=== PATIENT | male | born 1975 | race Caucasian/White ===

== ENCOUNTER → 2019-07-17 09:37 | Outpatient (BNVA) | payer SELFPAY | PROVIDERS: Family Provider Internal Medicine; PCP Internal Medicine; Visit Provider Specialist | DX: S62.141A Displaced fracture of body of hamate [unciform] bone, right wrist, initial encounter for closed fracture (principal); X58.XXXA Exposure to other specified factors, initial encounter | CPT/HCPCS: 73130 ==

== ENCOUNTER 2019-12-13 16:45 | Outpatient (CLI) | payer SELFPAY ==
--- NOTE | 2019-12-13 | XR_ITS ---
WS: [id number] Right hip, AP and frog-leg views, 12/13/2019 Clinical Data: PAIN Comparison: None. Findings: No fractures or dislocations are seen. The hip joint is intact. The soft tissues are not remarkable. The adjacent pelvis is normal. XR/XR hip RT 2-3V wo/w pel* [id number] Impression: Negative right hip.
== END 2019-12-13 16:46 | disposition home or self-care (01) ==
LOC: RAD 16:49
PROVIDERS: PCP Internal Medicine; Visit Provider Nurse Practitioner Family
DX: M25.551 Pain in right hip (principal)
CPT/HCPCS: 73502

== ENCOUNTER 2024-09-06 11:05 | Emergency (ER) | payer SELFPAY ==
[2024-09-06 11:13] VITALS: BP 147/79; PULSE 53; RESP 18; TEMP 36.7; O2SAT 98; BMI 31.5
--- NOTE | 2024-09-06 11:17 | XR_ITS ---
WS: [id number] XR chest 1V portable [id number] REASON FOR EXAM: Shortness of breath FINDINGS: The heart is at the upper limits of normal in size. 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 However this be rather prominent for the patient's age. Other mediastinal mass may need to be considered. Calcified granulomatous disease bilaterally. No acute pulmonary parenchymal or pleural abnormality. XR/XR chest 1V portable [id number] IMPRESSION: No acute chest abnormality. Widening of the upper mediastinum as above.
--- NOTE | 2024-09-06 11:19 | ECG_ITS ---
[facility] Test Date: 2024-09-06 Pat Name: Fuentes Pulido Department: Room: Gender: Male Coloring Room Man: : 1975 Requested By: Maeve Pacheco Order Number: [id number] [place] MD: Elvin Bueno M.D. Measurements Intervals [place] Rate: 57 P: 46 MN: 153 QRS: 46 QRSD: 91 T: 58 QT: 390 QTc: 380 Interpretive Statements SINUS BRADYCARDIA No previous ECG available for comparison Electronically Signed On 09-09-2024 18:08:40 ANTIQUE CLOCK REPAIRER by Elvin Bueno M.D. [email or web address]
[2024-09-06 11:33] VITALS: PULSE 54; O2SAT 100
[2024-09-06 11:52] LABS: Basophils # 0.1 10^3/uL (0.0-0.1); Basophils % 0.7 %; Eosinophils # 0.2 10^3/uL (0.0-0.8); Eosinophils % 2.2 %; Hematocrit 41.3 % (37-53); Lymphocytes # 2.1 10^3/uL (0.8-4.8); Lymphocytes % 28.7 %; Mean Corpuscular HGB Conc 32.9 g/dL (30-55); Mean Corpuscular Hemoglobin 28.5 pg (27-33); Mean Corpuscular Volume 86.6 fl (82-101); Mean Platelet Volume 10.7 fL (7.4-10.4); Monocytes # 0.8 10^3/uL (0.2-0.9); Monocytes % 10.5 %; Neutrophils # 4.11 10^3/uL (1.8-7.7); Neutrophils % 57.6 %; Nucleated Red Blood Cells % 0 %; Platelet Count 257 10^3/cmm (157-399); Red Blood Count 4.77 10^6/uL (3.85-5.65); Red Cell Distribution Width 13.9 % (12.1-15.1); White Blood Count 7.14 10^3/uL (3.29-11.43)
--- NOTE | 2024-09-06 12:07 | CT_ITS ---
WS: [id number] CT CHEST, ABDOMEN AND PELVIS WITH CONTRAST HISTORY: Left chest pain and flank pain. Abnormal chest x-ray TECHNIQUE: Contiguous 5 mm axial imaging performed through the chest, abdomen and pelvis with IV contrast, oral contrast has not been provided. Coronal and sagittal reformats chest. Coronal and sagittal reformats through the abdomen and pelvis. All CT scans at [facility] use at least one of these dose optimization techniques: automated exposure control; mA and/or kV adjustment per patient size (includes targeted exams where dose is matched to clinical indication); or iterative reconstruction. CONTRAST: Omnipaque 350; 100 mL IV. DLP: 1627.42 mGy.cm COMPARISON: Radiograph 09/06/[address]: Lungs are clear. No pulmonary mass, nodule or pneumonia. No RIGHT paratracheal abnormality. No pneumothorax. No pericardial or pleural effusions. Heart size is normal. No mediastinal or hilar adenopathy. Small hiatal hernia. Abdomen CT: Normal liver and spleen. Normal gallbladder. Normal common bile duct. Normal pancreas and adrenal glands. No renal obstruction or calcification. No perinephric stranding. Normal size abdominal aorta. Mesenteric enhancement is normal. There is very slight narrowing of the proximal celiac axis normal portal vein. No GI tract obstruction. No small bowel obstruction or inflammation. Normal appendix. Increased fecal material and air in the RIGHT colon. The cecum is medially placed but there does not appear to be a volvulus. This may be normal position of the cecum for this patient or a mobile cecum. There is no venous congestion to suggest this is an acute process. Pelvic CT: No free fluid or adenopathy. Normal appearance of the urinary bladder. Bladder wall is slightly thickened the cysts is probably due to partial distention. L3 superior endplate Schmorl's node. CT/CT chest abdpel w/*[id number] IMPRESSION: 1. No acute abnormality within the chest, abdomen or pelvis. 2. No pneumonia or mediastinal adenopathy. 3. No renal obstruction. 4. Constipation. Increased fecal material within the RIGHT colon. Cecum is med ially displaced but there does not appear to be an obstruction at this time. Th is may be secondary to a mobile cecum. No appendicitis.
--- NOTE | 2024-09-06 12:09 | W.ED.ABDPA2 ---
HPI - Abdominal Pain General: Chief Complaint: Abdominal Pain Stated Complaint: L side pain Time Seen by Provider: 09/06/24 11:12 History of Present Illness: 48-year-old man with a history of hypertension and diabetes who presents to the emergency room with left chest and flank pain. He has been coughing for couple of weeks now. He says this morning when he went to the restroom he felt a sudden pop in his left side and now has pain in his left flank and left chest. It hurts worse with deep breathing. It is caused some nausea but no vomiting. He feels somewhat short of breath. No fevers. No dysuria. Related Data Home Medications ?Medication ?Instructions ?Recorded ?Confirmed esomeprazole magnesium 20 mg 40 mg PO ONCE 07/17/19 09/06/24 capsule,delayed release (Nexium) insulin lispro 100 unit/mL See Rx Instructions .Route .COMPLEX 07/17/19 09/06/24 subcutaneous pen (Humalog KwikPen (U-100) Insulin) ibuprofen 200 mg tablet 200 mg PO Q6H PRN Pain 09/06/24 09/06/24 insulin degludec 100 unit/mL (3 38 unit SUBCUT DAILY 09/06/24 09/06/24 mL) subcutaneous pen (Tresiba FlexTouch U-100 insulin) lisinopril 10 mg tablet 10 mg PO DAILY 09/06/24 09/06/24 lovastatin 20 mg tablet 20 mg PO DAILY 09/06/24 09/06/24 multivit,Ca,royy-VP-avciyqby-lutn 1 tab PO DAILY 09/06/24 09/06/24 18 mg-500 mcg-300 mcg-250 mcg tablet Previous Rx's ?Medication ?Instructions ?Recorded benzonatate 200 mg capsule 200 mg PO TID PRN cough #30 caps 09/06/24 dexamethasone 6 mg tablet 6 mg PO DAILY 5 days #5 tabs 09/06/24 diclofenac sodium 50 mg 50 mg PO BID PRN pain #14 tabs 09/06/24 tablet,delayed release doxycycline hyclate 100 mg capsule 100 mg PO BID 7 days #14 caps 09/06/24 Allergies Allergy/AdvReac Type Severity Reaction Status Date / Time Penicillins Allergy uknown Verified 11/13/19 14:38 Review of Systems Narrative: Constitutional symptoms: Negative except as documented in HPI. Skin symptoms: Negative except as documented in HPI. Eye symptoms: Negative except as documented in HPI. ENMT symptoms: Negative except as documented in HPI. Respiratory symptoms: Negative except as documented in HPI. Cardiovascular symptoms: Negative except as documented in HPI. Gastrointestinal symptoms: Negative except as documented in HPI. Genitourinary symptoms: Negative except as documented in HPI. Musculoskeletal symptoms: Negative except as documented in HPI. Neurologic symptoms: Negative except as documented in HPI. Psychiatric symptoms: Negative except as documented in HPI. Endocrine symptoms: Negative except as documented in HPI. PFSH ED PFSH: Medical History (Updated 09/06/24 @ 13:09 by Maeve Murray MD) Panic disorder [episodic paroxysmal anxiety] Major depressive disorder, recurrent severe without psychotic features Cannabis dependence, in remission Social History Smoking and tobacco/nicotine status: never used tobacco/nicotine Alcohol intake: current Alcohol intake frequency: holidays/special occasions only Substance/Drug Use: current Substance/Drug use frequency: few times a month Physical Exam Narrative: EXAM NARRATIVE: General: Alert, no acute distress. Skin: Warm, dry. Head: Normocephalic, atraumatic. Neck: Supple, trachea midline. Eye: Extraocular movements are intact. Ears, nose, mouth and throat: mucosa moist. Cardiovascular: Regular, Normal peripheral perfusion. Respiratory: Lungs are clear to auscultation, respirations are non-labored, breath sounds are equal, Symmetrical chest wall expansion. Gastrointestinal: Soft, Nontender, Non distended Musculoskeletal: Normal ROM, no deformity. Neurological: Alert and oriented, No focal neurological deficit observed. Psychiatric: Cooperative, appropriate mood & affect. Course Vital Signs: Vital signs: Vital Signs Temperature 98.1 F 09/06/24 11:13 Pulse Rate 54 L 09/06/24 12:30 Respiratory Rate 18 09/06/24 11:13 Blood Pressure 132/70 09/06/24 12:30 Pulse Oximetry 100 09/06/24 12:30 Oxygen Delivery Me thod Room Air 09/06/24 12:30 MDM - Abdominal Pain Medical Decision Making Differential diagnosis for patient with chest pain includes but is not limited to and based on the above HPI, review of systems and physical exam: Pneumonia. unstable angina. angina. Acute coronary syndrome / [place]. Pulmonary embolism. Costochondritis / musculoskeletal. Pleurisy. Pericarditis. Esophageal spasm. Pancreatis. Cholecystitis. Orders placed to evaluate differential diagnosis based on the above differential, HPI and physical exam EKG: Time 1119. Rate 57. Sinus bradycardia, No ST-T changes, no ectopy, normal MT & QRS intervals, This was reviewed and interpreted by myself the ER physician at 11:24 AM Chest x-ray: No acute process. No infiltrate. No pneumothorax. This was reviewed and interpreted by myself the emergency room physician. I also reviewed the radiology report. Lab Review: Laboratory results were reviewed and interpreted by myself the emergency room physician. No leukocytosis. No anemia. No renal failure. Urinalysis is negative for infection or hematuria. CT of the chest abdomen pelvis without contrast: No acute abnormalities. This was reviewed and interpreted by myself the emergency room physician. I also reviewed the radiology report. I reviewed the patient's medical record. Reexamination: Patient remained stable. No increased work of breathing. No altered mental status. No focal motor deficits. Assessment and plan: Rib pain Cough Bronchitis - Discharged home - Discussed plan with patient. Answered any questions. - Evaluation and treatment of this problem were appropriate in the emergency setting. Lab Data 09/06/24 11:35 09/06/24 11:35 Labs/Radiology: Radiology Impressions Chest X-Ray 09/06/24 11:17 IMPRESSION: No acute chest abnormality. Widening of the upper mediastinum as above. Chest/Abdomen/Pelvis CT 09/06/24 12:07 IMPRESSION: 1. No acute abnormality within the chest, abdomen or pelvis. 2. No pneumonia or mediastinal adenopathy. 3. No renal obstruction. 4. Constipation. Increased fecal material within the RIGHT colon. Cecum is medially displaced but there does not appear to be an obstruction at this time. This may be secondary to a mobile cecum. No appendicitis. Laboratory Results WBC 7.14 10^3/uL (3.29-11.43) 09/06/24 11:35 RBC 4.77 10^6/uL (3.85-5.65) 09/06/24 11:35 Hgb 13.60 g/dL (11.27-16.99) 09/06/24 11:35 Hct 41.3 % (37-53) 09/06/24 11:35 MCV 86.6 fl (82-101) 09/06/24 11:35 MCH 28.5 pg (27-33) 09/06/24 11:35 MCHC 32.9 g/dL (30-55) 09/06/24 11:35 RDW 13.9 % (12.1-15.1) 09/06/24 11:35 Plt Count 257 10^3/cmm (157-399) 09/06/24 11:35 MPV 10.7 fL (7.4-10.4) H 09/06/24 11:35 Neut % (Auto) 57.6 % 09/06/24 11:35 Lymph % (Auto) 28.7 % 09/06/24 11:35 [place] % (Auto) 10.5 % 09/06/24 11:35 Eos % (Auto) 2.2 % 09/06/24 11:35 Baso % (Auto) 0.7 % 09/06/24 11:35 Neut # (Auto) 4.11 10^3/uL (1.8-7.7) 09/06/24 11:35 Lymph # (Auto) 2.1 10^3/uL (0.8-4.8) 09/06/24 11:35 [place] # (Auto) 0.8 10^3/uL (0.2-0.9) 09/06/24 11:35 Eos # (Auto) 0.2 10^3/uL (0.0-0.8) 09/06/24 11:35 Baso # (Auto) 0.1 10^3/uL (0.0-0.1) 09/06/24 11:35 Nucleated RBC % (auto) 0 % 09/06/24 11:35 Nucleated RBCs # 0.0 /100WBC 09/06/24 11:35 Sodium 138 mmol/L (136-145) 09/06/24 11:35 Potassium 4.6 mmol/L (3.5-5.1) 09/06/24 11:35 Chloride 102 mmol/L (98-107) 09/06/24 11:35 Carbon Dioxide 25 mmol/L (22-29) 09/06/24 11:35 Anion Gap 15.6 (5-19) 09/06/24 11:35 BUN 15 mg/dL (6-20) 09/06/24 11:35 Creatinine 1.0 mg/dL (0.7-1.2) 09/06/24 11:35 GFR Calculation 80.4 mL/min (90-130) L 09/06/24 11:35 Glucose 186 mg/dL (65-115) H 09/06/24 11:35 Calculated Osmolality 292 mOsm/kg (285-295) 09/06/24 11:35 Lactic Acid 1.5 mmol/L (0.5-2.2) 09/06/24 11:35 Calcium 8.8 mg/dL (8.5-10.5) 09/06/24 11:35 Total Bilirubin 0.2 mg/dL (0.15-1.2) 09/06/24 11:35 AST 24 U/L (0-40) 09/06/24 11:35 ALT 23 U/L (0-41) 09/06/24 11:35 Alkaline Phosphatase 56 U/L (40-130) 09/06/24 11:35 Troponin T Baseline < 6 ng/L (0-15) 09/06/24 11:35 C-Reactive Protein 4.7 mg/L (0.0-4.9) 09/06/24 11:35 Total Protein 6.7 g/dL (6.6-8.7) 09/06/24 11:35 Albumin 4.0 g/dL (3.5-5.2) 09/06/24 11:35 Globulin 2.7 g/dL (1.3-4.6) 09/06/24 11:35 Lipase 19 U/L (13-60) 09/06/24 11:35 Urine Color Yellow (Yellow) 09/06/24 12:13 Urine Appearance Clear (CLEAR) 09/06/24 12:13 Urine pH 7.5 (5-7) 09/06/24 12:13 Ur Specific [place] 1.015 (1.005-1.030) 09/06/24 12:13 Urine Protein Negative (Negative) 09/06/24 12:13 Urine Glucose (UA) Negative (Normal) 09/06/24 12:13 Urine Ketones Negative (Negative) 09/06/24 12:13 Urine Blood Negative (Negative) 09/06/24 12:13 Urine Nitrate Negative (Negative) 09/06/24 12:13 Urine Bilirubin Negative (Negative) 09/06/24 12:13 Urine Urobilinogen 0.2 mg/dL (Negative) 09/06/24 12:13 Ur Leukocyte Esterase Negative (Negative) 09/06/24 12:13 Amorphous Sediment Not Reportable 09/06/24 12:13 Influenza A (PCR) Negative (Negative) 09/06/24 11:28 Influenza Type B (PCR) Negative (Negative) 09/06/24 11:28 RSV (PCR) Negative (Negative) 09/06/24 11:28 SARS-CoV-2 (PCR) Negative (Negative) 09/06/24 11:28 All radiology interpretation(s) finalized by discharge Discharge Plan Discharge Patient Disposition: Home Clinical Impression: Rib pain Condition: Stable Prescriptions: New benzonatate 200 mg capsule 200 mg PO TID PRN (Reason: cough) Qty: 30 0RF dexamethasone 6 mg tablet 6 mg PO DAILY 5 Days Qty: 5 0RF diclofenac sodium 50 mg tablet,delayed release (DR/EC) 50 mg PO BID PRN (Reason: pain) Qty: 14 0RF doxycycline hyclate 100 mg capsule 100 mg PO BID 7 Days Qty: 14 0RF No Action esomeprazole magnesium [Nexium] 20 mg capsule,delayed release(DR/EC) 40 mg PO ONCE insulin lispro [Humalog KwikPen Insulin] 100 unit/mL insulin pen See Rx Instructions .ROUTE .COMPLEX Rx Instructions: slind scale dosing lisinopril 10 mg tablet 10 mg PO DAILY lovastatin 20 mg tablet 20 mg PO DAILY Complete [id number] Tablet 1 tab PO DAILY insulin degludec [Tresiba FlexTouch U-100] 100 unit/mL (3 mL) Insulin Pen 38 unit SUBCUT DAILY ibuprofen 200 mg Tablet 200 mg PO Q6H PRN (Reason: Pain) Discharge Orders: Discharge ED (Routine); Ordered 09/06/24 Ordered By: Maeve Murray Referrals: Vee Carter MD [Primary Care Provider] - Discharge Diet: As Directed Discharge Activity: Increase activity as tolerated Patient Instructions: Thoracic Pain (ED), Noncardiac Chest Pain (ED), Opioid Safety, Pain Management Activity Restrictions/Additional Instructions: Thank you for choosing [facility] for your healthcare needs today. Please realize this is an emergency room and that we are providing you with a medical screening exam and this may not be complete and all inclusive of all the testing and or work up that you may need to determine your ailment or severity of your illness. You have been screened and evaluated and felt safe for discharge. Health conditions do change or evolve sometimes and as such it is important that you follow up with your Primary Doctor to be re checked, 3-5 days is a general good time frame for follow up. You are always welcome to return to the ED for re assessment if your symptoms are worsening or you have new concerns Print Language: Maltese Coding Level of Care Code ED [facility] for Tereza Alfred
[2024-09-06 12:12] LABS: Lactic Sepsis W/Reflex 1.5 mmol/L (0.5-2.2)
[2024-09-06 12:13] LABS: Alanine Aminotransferase 23 U/L (0-41); Alkaline Phosphatase 56 U/L (40-130); Anion Gap 15.6 (5-19); Aspartate Amino Transferase 24 U/L (0-40); Blood Urea Nitrogen 15 mg/dL (6-20); C Reactive Protein 4.7 mg/L (0.0-4.9); Calcium 8.8 mg/dL (8.5-10.5); Carbon Dioxide 25 mmol/L (22-29); Chloride 102 mmol/L (98-107); Creatinine Clr Calc Pharmacy 109.2959; Globulin 2.7 g/dL (1.3-4.6); Glomerular Filtration Rate 80.4 mL/min (90-130); Glucose 186 mg/dL (65-115); Lipase 19 U/L (13-60); Osmolality Calculated 292 mOsm/kg (285-295); Potassium 4.6 mmol/L (3.5-5.1); Sodium 138 mmol/L (136-145); Total Bilirubin 0.2 mg/dL (0.15-1.2); Total Protein 6.7 g/dL (6.6-8.7)
[2024-09-06 12:18] VITALS: BP 132/70; PULSE 51; O2SAT 100
[2024-09-06 12:21] LABS: Troponin(5th) Baseline < 6 ng/L (0-15)
[2024-09-06 12:24] LABS: Add Urine Microscopic? NO
[2024-09-06] MEDS: iohexol 350 mg/mL 500 mL Btl (per mL) IV (12:25)
[2024-09-06 12:30] VITALS: BP 132/70; PULSE 54; O2SAT 100
[2024-09-06 12:42] LABS: Bilirubin Urine Negative (Negative); Blood Urine Negative (Negative); Glucose Urine UA Negative (Normal); Ketones Urine Negative (Negative); Leukocyte Esterase Urine Negative (Negative); Nitrate Urine Negative (Negative); Protein Urine Negative (Negative); Specific Gravity, Urine 1.015 (1.005-1.030); Urine Appearance Clear (CLEAR); Urine Color Yellow (Yellow); Urobilinogen Urine 0.2 mg/dL (Negative); pH Urine 7.5 (5-7)
[2024-09-06 12:46] LABS: Add Urine Culture? No; Charge for UA Resulting for Rev
[2024-09-06 12:48] LABS: Influenza A NEGATIVE (Negative); Influenza B NEGATIVE (Negative); Respiratory Syncytial Virus Ce NEGATIVE (Negative); SARS-CoV-2 PCR NEGATIVE (Negative)
[2024-09-06 13:45] VITALS: BP 130/71; PULSE 58; O2SAT 98
== END 2024-09-06 13:46 | disposition home or self-care (01) ==
PROVIDERS: Emergency Medicine; Emergency Provider Emergency Medicine; PCP Internal Medicine
DX: R07.81 Pleurodynia (principal); Z11.52 Encounter for screening for COVID-19; Z79.4 Long term (current) use of insulin; I10 Essential (primary) hypertension; E11.9 Type 2 diabetes mellitus without complications
CPT/HCPCS: 36415; 71045; 71260; 74177; 80053; 81003; 83605; 83690; 84484; 85025; 86140; 87040; 87637; 93005; 99285